=== PATIENT | female | born 1935 | race Caucasian/White ===

== ENCOUNTER 2021-01-01 14:34 | Inpatient (IN) ==
[2021-01-01 15:29] LABS: Basophils % 0.1 % (0.0-0.8); Eosinophils % 0.1 % (0.00-10.9); Hematocrit 37.7 VOL% (35.7-47.0); Hemoglobin 12.1 GM/DL (12.0-16.0); Immature Granulocytes % 0.6 %; Immature Granulocytes Absolute 0.06 #; Lymphocytes # 1.8 10*3/uL (1.4-4.0); Lymphocytes % 17.3 % (21.3-54.2); Mean Corpuscular HGB Conc 32.1 GM/DL (32-36); Mean Corpuscular Volume 99.2 FL (87-102); Mean Platelet Volume 9.4 FL (9.6-12.0); Monocytes % 10.2 % (1.7-12.7); Neutrophils % 71.7 % (38.7-73.9); Platelet Count 357 T/CUMM (130-400); Red Cell Distribution Width 13.2 % (9.3-17.3); White Blood Count 10.6 T/CUMM (4-12)
[2021-01-01 15:33] LABS: Barbiturates Screen,Urine Negative (Negative); Benzodiazepines Screen,Urine Negative (Negative); Cannabinoid Screen,Urine Negative (Negative); Opiate Screen,Urine Positive (Negative); Phencyclidine Screen,Urine Negative (Negative)
[2021-01-01 15:34] LABS: Bacteria,Urine Many /HPF (Few); Bilirubin,Urine Negative (Negative); Blood, Urine Small mg/dL (Negative); Glucose,Urine (UA) Negative (Negative); Ketones,Urine Negative (Negative); Mucus,Urine Occasional /LPF (Occasional); Nitrite,Urine Negative (Negative); Protein,Urine 30 MG/DL; RBC,Urine 7 /HPF (0-4); Urine Appearance CLOUDY (Clear); Urine Color Yellow (Yellow); Urine Specific Gravity 1.016 (1.001-1.035); Urine Urobilinogen < 2.0 EU/DL (0.2-1.0); WBC,Urine 80 /HPF (0-6)
[2021-01-01 15:53] LABS: Alanine Aminotransferase 16 U/L (13-56); Alkaline Phosphatase 51 U/L (45-117); Aspartate Amino Transferase 12 U/L (0-37); Bilirubin,Total < 0.39 MG/DL (0.2-1.0); Blood Urea Nitrogen 46 MG/DL (7-18); Calcium 10.2 MG/DL (8.5-10.1); Carbon Dioxide 22 MMOL/L (21-32); Estimated Glom Filtration Rate 26 ML/MIN; Glucose 106 MG/DL (74-106); Osmolality,Calculated 303.4 MOS/KG (273-304); Potassium 4.8 MMOL/L (3.5-5.1); Sodium 147 MMOL/L (136-145); Total Protein 7.6 G/DL (6.4-8.3)
[2021-01-01] MEDS ORDERED: cefTRIAXone 1,000 MG in SODIUM CHLORIDE 0.9% 100 ML IV STA (16:06)
[2021-01-01] MEDS ORDERED: SODIUM CHLORIDE 0.9% 1,000 ML IV STA (16:06)
[2021-01-01] MEDS ORDERED: DILTIAZEM 50 MG/10 ML VIAL IV STA (16:28)
[2021-01-01] MEDS ORDERED: DILTIAZEM 100 MG VIAL.ADD IV ONE (16:30)
[2021-01-01] MEDS ORDERED: DILTIAZEM 25 MG/5 ML VIAL IV ONE (16:30)
[2021-01-01] MEDS ORDERED: DEXTROSE 50% 25 GM/50 ML VIAL IV PRN (16:38)
[2021-01-01] MEDS ORDERED: GLUCAGON 1 MG VIAL IM PRN (16:38)
[2021-01-01] MEDS ORDERED: ONDANSETRON 4 MG/2 ML VIAL IV PRN (16:38)
[2021-01-01] MEDS ORDERED: ENOXAPARIN 30 MG/0.3 ML SYRINGE SUBCUT SCH (18:00)
[2021-01-01 18:49] LABS: Thyroid Stimulating Hormone 0.009 uIU/ml (0.358-3.74)
[2021-01-01] MEDS: DILTIAZEM INJ 100 MG in SODIUM CHLORIDE 0.9% 100 ML IV SCH (19:47)
[2021-01-01] MEDS: DEXTROSE 5% 1,000 ML IV SCH (21:23)
[2021-01-02] MEDS: DEXTROSE 5% 1,000 ML IV SCH (05:42)
[2021-01-02 06:28] LABS: Calcium 7.9 MG/DL (8.5-10.1); Osmolality,Calculated 293.4 MOS/KG (273-304); Potassium 3.2 MMOL/L (3.5-5.1)
[2021-01-02 06:30] LABS: Basophils % 0.1 % (0.0-0.8); Eosinophils % 0.1 % (0.00-10.9); Hematocrit 29.9 VOL% (35.7-47.0); Immature Granulocytes % 0.5 %; Immature Granulocytes Absolute 0.04 #; Lymphocytes # 1.8 10*3/uL (1.4-4.0); Mean Corpuscular HGB Conc 28.8 GM/DL (32-36); Mean Corpuscular Volume 110.7 FL (87-102); Mean Platelet Volume 9.8 FL (9.6-12.0); Monocytes % 11.7 % (1.7-12.7); Neutrophils % 62.6 % (38.7-73.9); Platelet Count 227 T/CUMM (130-400); Red Cell Distribution Width 13.6 % (9.3-17.3); White Blood Count 7.3 T/CUMM (4-12)
[2021-01-02 06:33] LABS: Hemoglobin 8.6 GM/DL (12.0-16.0)
[2021-01-02] MEDS ORDERED: INSULIN LISPRO 100 UNIT/ML SUBCUT ONE (07:21)
[2021-01-02] MEDS ORDERED: DEXTROSE 50% 25 GM/50 ML VIAL IV PRN (07:24)
[2021-01-02] MEDS ORDERED: SODIUM CHLORIDE 0.9% 1,000 ML IV SCH (07:30)
[2021-01-02] MEDS: PANTOPRAZOLE 40 MG TABLET PO SCH (10:45)
[2021-01-02] MEDS: INSULIN LISPRO 100 UNIT/ML SUBCUT SCH ×4 (11:52→23:08)
[2021-01-02] MEDS ORDERED: ACETAMINOPHEN 325 MG TABLET PO PRN (13:07)
[2021-01-02] MEDS: SODIUM CHLOR 0.9% KCL 40 MEQ 40 MEQ/1,000 ML BAG IV SCH (13:30)
[2021-01-02] MEDS ORDERED: LEVOTHYROXINE 125 MCG TABLET PO SCH (13:30)
[2021-01-02] MEDS ORDERED: METOPROLOL SUCCINATE XL 50 MG TABLET PO ONE (13:38)
[2021-01-02] MEDS: CITALOPRAM 20 MG TABLET PO SCH (14:13)
[2021-01-02] MEDS: MONTELUKAST 10 MG TABLET PO SCH (14:13)
[2021-01-02] MEDS ORDERED: cefTRIAXone 1,000 MG in SYRINGE 1 EACH IV SCH (16:00)
[2021-01-02] MEDS: APIXABAN 2.5 MG TABLET PO SCH ×2 (16:31→22:03)
[2021-01-02] MEDS: DILTIAZEM INJ 100 MG in SODIUM CHLORIDE 0.9% 100 ML IV SCH (17:10)
[2021-01-02] MEDS ORDERED: SIMVASTATIN 20 MG TABLET PO SCH (21:00)
[2021-01-02] MEDS: METOPROLOL TARTRATE 25 MG TABLET PO SCH (22:03)
[2021-01-02] MEDS: ASCORBIC ACID 500 MG TABLET PO SCH (22:03)
[2021-01-03] MEDS: SODIUM CHLOR 0.9% KCL 40 MEQ 40 MEQ/1,000 ML BAG IV SCH ×2 (02:49→15:56)
[2021-01-03] MEDS: INSULIN LISPRO 100 UNIT/ML SUBCUT SCH ×6 (03:38→20:41)
[2021-01-03] MEDS: LEVOTHYROXINE 75 MCG TABLET PO SCH (05:44)
[2021-01-03 06:20] LABS: Basophils % 0.3 % (0.0-0.8); Eosinophils # 0.1 10*3/uL (0.0-0.87); Eosinophils % 1.3 % (0.00-10.9); Hemoglobin 12.6 GM/DL (12.0-16.0); Immature Granulocytes % 0.6 %; Immature Granulocytes Absolute 0.07 #; Lymphocytes # 2.6 10*3/uL (1.4-4.0); Lymphocytes % 23.3 % (21.3-54.2); Mean Corpuscular HGB Conc 32.3 GM/DL (32-36); Mean Corpuscular Volume 97.5 FL (87-102); Mean Platelet Volume 9.8 FL (9.6-12.0); Monocytes % 9.5 % (1.7-12.7); Platelet Count 314 T/CUMM (130-400); Red Cell Distribution Width 12.8 % (9.3-17.3); White Blood Count 11.1 T/CUMM (4-12)
[2021-01-03 06:26] LABS: Calcium 9.4 MG/DL (8.5-10.1); Osmolality,Calculated 280.5 MOS/KG (273-304); Potassium 5.1 MMOL/L (3.5-5.1)
[2021-01-03] MEDS ORDERED: ASPIRIN EC 81 MG TABLET PO SCH (09:00)
[2021-01-03] MEDS: METOPROLOL TARTRATE 25 MG TABLET PO SCH ×2 (09:38→20:41)
[2021-01-03] MEDS: CITALOPRAM 20 MG TABLET PO SCH (09:38)
[2021-01-03] MEDS: MONTELUKAST 10 MG TABLET PO SCH (09:39)
[2021-01-03] MEDS: ASCORBIC ACID 500 MG TABLET PO SCH ×2 (09:39→20:41)
[2021-01-03] MEDS: CALCIUM (CARBONATE) 500 MG TABLET PO SCH (09:39)
[2021-01-03] MEDS: PANTOPRAZOLE 40 MG TABLET PO SCH (09:39)
[2021-01-03] MEDS: APIXABAN 2.5 MG TABLET PO SCH ×2 (09:39→20:41)
[2021-01-03] MEDS: DILTIAZEM INJ 100 MG in SODIUM CHLORIDE 0.9% 100 ML IV SCH ×2 (14:46→16:35)
[2021-01-03 15:21] LABS: Potassium 4.5 MMOL/L (3.5-5.1)
[2021-01-03] MEDS ORDERED: METOPROLOL TARTRATE 25 MG TABLET PO ONE (15:23)
[2021-01-03] MEDS: CEFUROXIME 500 MG TABLET PO SCH (20:40)
[2021-01-03] MEDS: PRAVASTATIN 20 MG TABLET PO SCH (20:41)
[2021-01-04] MEDS: LEVOTHYROXINE 75 MCG TABLET PO SCH (05:56)
[2021-01-04 06:36] LABS: Basophils % 0.2 % (0.0-0.8); Eosinophils # 0.2 10*3/uL (0.0-0.87); Eosinophils % 1.4 % (0.00-10.9); Hematocrit 37.5 VOL% (35.7-47.0); Hemoglobin 12.3 GM/DL (12.0-16.0); Immature Granulocytes % 0.7 %; Immature Granulocytes Absolute 0.09 #; Lymphocytes % 23.7 % (21.3-54.2); Mean Corpuscular HGB Conc 32.8 GM/DL (32-36); Mean Corpuscular Volume 97.4 FL (87-102); Mean Platelet Volume 8.8 FL (9.6-12.0); Monocytes % 9.7 % (1.7-12.7); Neutrophils % 64.3 % (38.7-73.9); Platelet Count 268 T/CUMM (130-400); Red Blood Count 3.85 MC/CUMM (3.8-5.5); Red Cell Distribution Width 12.9 % (9.3-17.3); White Blood Count 12.7 T/CUMM (4-12)
[2021-01-04 07:03] LABS: Calcium 8.5 MG/DL (8.5-10.1); Osmolality,Calculated 276.7 MOS/KG (273-304); Potassium 4.4 MMOL/L (3.5-5.1)
[2021-01-04 07:35] LABS: Calcium 8.1 MG/DL (8.5-10.1); Osmolality,Calculated 280.4 MOS/KG (273-304); Potassium 4.1 MMOL/L (3.5-5.1)
[2021-01-04] MEDS: INSULIN LISPRO 100 UNIT/ML SUBCUT SCH ×4 (08:46→21:07)
[2021-01-04] MEDS: MONTELUKAST 10 MG TABLET PO SCH (09:30)
[2021-01-04] MEDS: DILTIAZEM CD 120 MG CAPSULE PO SCH (09:30)
[2021-01-04] MEDS: METOPROLOL TARTRATE 25 MG TABLET PO SCH ×2 (09:30→21:07)
[2021-01-04] MEDS: CALCIUM (CARBONATE) 500 MG TABLET PO SCH (09:30)
[2021-01-04] MEDS: PANTOPRAZOLE 40 MG TABLET PO SCH (09:30)
[2021-01-04] MEDS: CITALOPRAM 20 MG TABLET PO SCH (09:31)
[2021-01-04] MEDS: ASCORBIC ACID 500 MG TABLET PO SCH ×2 (09:31→21:07)
[2021-01-04] MEDS: APIXABAN 2.5 MG TABLET PO SCH ×2 (09:31→21:07)
[2021-01-04] MEDS: CEFUROXIME 500 MG TABLET PO SCH ×2 (09:31→21:07)
[2021-01-04] MEDS ORDERED: FAMOTIDINE 20 MG/2 ML VIAL IV ONE (17:50)
[2021-01-04] MEDS ORDERED: methylPREDNISolone SOD SUC 125 MG/2 ML VIAL IV ONE (17:50)
[2021-01-04] MEDS: DILTIAZEM INJ 100 MG in SODIUM CHLORIDE 0.9% 100 ML IV SCH (17:52)
[2021-01-04] MEDS ORDERED: FAMOTIDINE INJ 40 MG in SODIUM CHLORIDE 0.9% 100 ML IV ONE (18:00)
[2021-01-04 18:01] LABS: Bacteria,Urine Many /HPF (Few); Bilirubin,Urine Negative (Negative); Blood, Urine Moderate mg/dL (Negative); Glucose,Urine (UA) Negative (Negative); Ketones,Urine 5 mg/dL (Negative); Mucus,Urine Occasional /LPF (Occasional); Nitrite,Urine Positive (Negative); Protein,Urine 30 MG/DL; RBC,Urine 40 /HPF (0-4); Urine Appearance Slightly Hazy (Clear); Urine Color Yellow (Yellow); Urine Specific Gravity 1.013 (1.001-1.035); Urine Urobilinogen < 2.0 EU/DL (0.2-1.0); WBC,Urine 302 /HPF (0-6)
[2021-01-04] MEDS: PRAVASTATIN 20 MG TABLET PO SCH (21:07)
[2021-01-05] MEDS: LEVOTHYROXINE 75 MCG TABLET PO SCH (06:12)
[2021-01-05 07:55] LABS: Basophils % 0.1 % (0.0-0.8); Hematocrit 37.9 VOL% (35.7-47.0); Hemoglobin 12.6 GM/DL (12.0-16.0); Lymphocytes # 1.5 10*3/uL (1.4-4.0); Lymphocytes % 14.6 % (21.3-54.2); Mean Corpuscular HGB Conc 33.2 GM/DL (32-36); Mean Corpuscular Volume 95.2 FL (87-102); Mean Platelet Volume 9.6 FL (9.6-12.0); Monocytes % 1.5 % (1.7-12.7); Neutrophils % 82.8 % (38.7-73.9); Platelet Count 334 T/CUMM (130-400); Red Blood Count 3.98 MC/CUMM (3.8-5.5); Red Cell Distribution Width 12.5 % (9.3-17.3); White Blood Count 10.2 T/CUMM (4-12)
[2021-01-05 08:11] LABS: Osmolality,Calculated 278.8 MOS/KG (273-304); Potassium 3.7 MMOL/L (3.5-5.1)
[2021-01-05 08:14] LABS: Albumin 3.4 G/DL (3.4-5.0); Bilirubin,Total 1.1 MG/DL (0.2-1.0); Calcium 9.3 MG/DL (8.5-10.1); Potassium 3.7 MMOL/L (3.5-5.1)
[2021-01-05] MEDS: INSULIN LISPRO 100 UNIT/ML SUBCUT SCH ×5 (10:05→21:25)
[2021-01-05] MEDS: CALCIUM (CARBONATE) 500 MG TABLET PO SCH (10:06)
[2021-01-05] MEDS: APIXABAN 2.5 MG TABLET PO SCH ×2 (10:06→21:25)
[2021-01-05] MEDS: DILTIAZEM CD 120 MG CAPSULE PO SCH (10:06)
[2021-01-05] MEDS: METOPROLOL TARTRATE 25 MG TABLET PO SCH ×2 (10:07→21:25)
[2021-01-05] MEDS: ASCORBIC ACID 500 MG TABLET PO SCH ×2 (10:07→21:25)
[2021-01-05] MEDS: PANTOPRAZOLE 40 MG TABLET PO SCH (10:07)
[2021-01-05] MEDS: CITALOPRAM 20 MG TABLET PO SCH (10:07)
[2021-01-05] MEDS: MONTELUKAST 10 MG TABLET PO SCH (10:07)
[2021-01-05] MEDS: CEFUROXIME 500 MG TABLET PO SCH ×2 (10:07→21:25)
[2021-01-05] MEDS ORDERED: DILTIAZEM CD 120 MG CAPSULE PO SCH (11:28)
[2021-01-05] MEDS ORDERED: DILTIAZEM CD 120 MG CAPSULE PO ONE (11:28)
[2021-01-05] MEDS: DILTIAZEM INJ 100 MG in SODIUM CHLORIDE 0.9% 100 ML IV SCH (16:23)
[2021-01-05] MEDS: PRAVASTATIN 20 MG TABLET PO SCH (21:25)
[2021-01-06] MEDS: LEVOTHYROXINE 75 MCG TABLET PO SCH (05:59)
[2021-01-06 06:47] LABS: Osmolality,Calculated 280.8 MOS/KG (273-304); Potassium 3.6 MMOL/L (3.5-5.1)
[2021-01-06] MEDS: INSULIN LISPRO 100 UNIT/ML SUBCUT SCH ×4 (08:08→21:54)
[2021-01-06] MEDS ORDERED: POTASSIUM CHLORIDE 20 MEQ TABLET PO ONE (08:33)
[2021-01-06] MEDS: CALCIUM (CARBONATE) 500 MG TABLET PO SCH (08:51)
[2021-01-06] MEDS: MONTELUKAST 10 MG TABLET PO SCH (08:51)
[2021-01-06] MEDS: CITALOPRAM 20 MG TABLET PO SCH (08:51)
[2021-01-06] MEDS: METOPROLOL TARTRATE 25 MG TABLET PO SCH ×2 (08:52→21:52)
[2021-01-06] MEDS: DILTIAZEM CD 120 MG CAPSULE PO SCH (08:52)
[2021-01-06] MEDS: PANTOPRAZOLE 40 MG TABLET PO SCH (08:52)
[2021-01-06] MEDS: CEFUROXIME 500 MG TABLET PO SCH ×2 (08:52→21:52)
[2021-01-06] MEDS: APIXABAN 2.5 MG TABLET PO SCH ×2 (08:52→21:52)
[2021-01-06] MEDS: ASCORBIC ACID 500 MG TABLET PO SCH ×2 (10:08→21:52)
[2021-01-06] MEDS: CYANOCOBALAMIN 1000 MCG/1 ML VIAL SUBCUT SCH (12:30)
[2021-01-06] MEDS: DILTIAZEM INJ 100 MG in SODIUM CHLORIDE 0.9% 100 ML IV SCH (16:02)
[2021-01-06] MEDS: PRAVASTATIN 20 MG TABLET PO SCH (21:52)
[2021-01-07 05:45] LABS: Basophils % 0.1 % (0.0-0.8); Eosinophils # 0.1 10*3/uL (0.0-0.87); Eosinophils % 0.6 % (0.00-10.9); Hematocrit 36.5 VOL% (35.7-47.0); Hemoglobin 12.1 GM/DL (12.0-16.0); Immature Granulocytes Absolute 0.14 #; Lymphocytes # 2.4 10*3/uL (1.4-4.0); Lymphocytes % 17.6 % (21.3-54.2); Mean Corpuscular HGB Conc 33.2 GM/DL (32-36); Mean Corpuscular Volume 95.3 FL (87-102); Mean Platelet Volume 9.4 FL (9.6-12.0); Monocytes % 9.5 % (1.7-12.7); Neutrophils % 71.2 % (38.7-73.9); Platelet Count 362 T/CUMM (130-400); Red Blood Count 3.83 MC/CUMM (3.8-5.5); White Blood Count 13.6 T/CUMM (4-12)
[2021-01-07 06:08] LABS: Osmolality,Calculated 289.3 MOS/KG (273-304)
[2021-01-07] MEDS: LEVOTHYROXINE 75 MCG TABLET PO SCH (06:15)
[2021-01-07] MEDS: INSULIN LISPRO 100 UNIT/ML SUBCUT SCH ×4 (08:24→21:24)
[2021-01-07] MEDS: CITALOPRAM 20 MG TABLET PO SCH (08:25)
[2021-01-07] MEDS: APIXABAN 2.5 MG TABLET PO SCH ×2 (08:25→21:24)
[2021-01-07] MEDS: MONTELUKAST 10 MG TABLET PO SCH (08:25)
[2021-01-07] MEDS: PANTOPRAZOLE 40 MG TABLET PO SCH (08:25)
[2021-01-07] MEDS: ASCORBIC ACID 500 MG TABLET PO SCH ×2 (08:26→21:24)
[2021-01-07] MEDS: CEFUROXIME 500 MG TABLET PO SCH (08:26)
[2021-01-07] MEDS: DILTIAZEM CD 120 MG CAPSULE PO SCH (08:26)
[2021-01-07] MEDS: METOPROLOL TARTRATE 25 MG TABLET PO SCH ×2 (08:26→21:24)
[2021-01-07] MEDS: CYANOCOBALAMIN 1000 MCG/1 ML VIAL SUBCUT SCH (08:27)
[2021-01-07] MEDS: CALCIUM (CARBONATE) 500 MG TABLET PO SCH (08:27)
[2021-01-07] MEDS ORDERED: DILTIAZEM CD 120 MG CAPSULE PO SCH (09:58)
[2021-01-07] MEDS: METOPROLOL TARTRATE 5 MG/5 ML VIAL IV SCH ×3 (10:05→10:19)
[2021-01-07] MEDS ORDERED: AMIODARONE INJ 150 MG in DEXTROSE 5% 100 ML IV ONE (11:00)
[2021-01-07] MEDS ORDERED: AMIODARONE INJ 450 MG in DEXTROSE 5% 241 ML IV SCH ×2 (11:00→17:00)
[2021-01-07] MEDS: PRAVASTATIN 20 MG TABLET PO SCH (21:24)
[2021-01-08] MEDS ORDERED: hydrALAZINE 20 MG/1 ML VIAL IV PRN (01:25)
[2021-01-08 06:26] LABS: Basophils % 0.2 % (0.0-0.8); Eosinophils # 0.1 10*3/uL (0.0-0.87); Eosinophils % 0.3 % (0.00-10.9); Hemoglobin 12.8 GM/DL (12.0-16.0); Immature Granulocytes Absolute 0.16 #; Lymphocytes # 2.7 10*3/uL (1.4-4.0); Lymphocytes % 17.6 % (21.3-54.2); Mean Corpuscular HGB Conc 33.7 GM/DL (32-36); Mean Corpuscular Volume 95.7 FL (87-102); Mean Platelet Volume 9.2 FL (9.6-12.0); Monocytes % 9.9 % (1.7-12.7); Platelet Count 353 T/CUMM (130-400); Red Blood Count 3.97 MC/CUMM (3.8-5.5); Red Cell Distribution Width 12.9 % (9.3-17.3); White Blood Count 15.5 T/CUMM (4-12)
[2021-01-08] MEDS: LEVOTHYROXINE 75 MCG TABLET PO SCH (06:31)
[2021-01-08 07:19] LABS: Calcium 8.9 MG/DL (8.5-10.1); Osmolality,Calculated 279.7 MOS/KG (273-304); Potassium 4.3 MMOL/L (3.5-5.1)
[2021-01-08] MEDS: PANTOPRAZOLE 40 MG TABLET PO SCH (08:52)
[2021-01-08] MEDS: MONTELUKAST 10 MG TABLET PO SCH (08:52)
[2021-01-08] MEDS: DILTIAZEM CD 120 MG CAPSULE PO SCH (08:53)
[2021-01-08] MEDS: ASCORBIC ACID 500 MG TABLET PO SCH ×2 (08:57→21:15)
[2021-01-08] MEDS: CALCIUM (CARBONATE) 500 MG TABLET PO SCH (08:58)
[2021-01-08] MEDS: AMIODARONE 200 MG TABLET PO SCH ×2 (09:00→21:15)
[2021-01-08] MEDS: CITALOPRAM 20 MG TABLET PO SCH (09:01)
[2021-01-08] MEDS: APIXABAN 2.5 MG TABLET PO SCH ×2 (09:03→21:15)
[2021-01-08] MEDS: CYANOCOBALAMIN 1000 MCG/1 ML VIAL SUBCUT SCH (09:06)
[2021-01-08] MEDS: METOPROLOL TARTRATE 25 MG TABLET PO SCH ×2 (09:14→21:15)
[2021-01-08] MEDS: INSULIN LISPRO 100 UNIT/ML SUBCUT SCH ×4 (09:30→22:38)
[2021-01-08] MEDS: PRAVASTATIN 20 MG TABLET PO SCH (21:15)
[2021-01-09 05:50] LABS: Basophils % 0.2 % (0.0-0.8); Eosinophils # 0.2 10*3/uL (0.0-0.87); Eosinophils % 1.2 % (0.00-10.9); Hematocrit 36.9 VOL% (35.7-47.0); Hemoglobin 12.3 GM/DL (12.0-16.0); Lymphocytes # 2.8 10*3/uL (1.4-4.0); Lymphocytes % 18.1 % (21.3-54.2); Mean Corpuscular HGB Conc 33.3 GM/DL (32-36); Mean Corpuscular Volume 94.4 FL (87-102); Mean Platelet Volume 9.2 FL (9.6-12.0); Monocytes % 10.3 % (1.7-12.7); Neutrophils % 68.2 % (38.7-73.9); Platelet Count 378 T/CUMM (130-400); Red Blood Count 3.91 MC/CUMM (3.8-5.5); Red Cell Distribution Width 12.8 % (9.3-17.3); White Blood Count 15.3 T/CUMM (4-12)
[2021-01-09 06:07] LABS: Calcium 8.8 MG/DL (8.5-10.1); Osmolality,Calculated 280.8 MOS/KG (273-304); Potassium 3.7 MMOL/L (3.5-5.1)
[2021-01-09] MEDS: LEVOTHYROXINE 75 MCG TABLET PO SCH (06:18)
[2021-01-09] MEDS: INSULIN LISPRO 100 UNIT/ML SUBCUT SCH ×2 (08:17→13:24)
[2021-01-09] MEDS: CYANOCOBALAMIN 1000 MCG/1 ML VIAL SUBCUT SCH (08:55)
[2021-01-09] MEDS: CALCIUM (CARBONATE) 500 MG TABLET PO SCH (08:56)
[2021-01-09] MEDS: METOPROLOL TARTRATE 25 MG TABLET PO SCH (08:56)
[2021-01-09] MEDS: MONTELUKAST 10 MG TABLET PO SCH (08:56)
[2021-01-09] MEDS: APIXABAN 2.5 MG TABLET PO SCH (08:56)
[2021-01-09] MEDS: CITALOPRAM 20 MG TABLET PO SCH (08:56)
[2021-01-09] MEDS: ASCORBIC ACID 500 MG TABLET PO SCH (08:57)
[2021-01-09] MEDS: DILTIAZEM CD 120 MG CAPSULE PO SCH (08:57)
[2021-01-09] MEDS: PANTOPRAZOLE 40 MG TABLET PO SCH (08:57)
[2021-01-09] MEDS: AMIODARONE 200 MG TABLET PO SCH (08:59)
[2021-01-09 12:35] VITALS: BP 142/60
== END 2021-01-09 13:20 | DRG 690 ==
LOC: EDUNIT# → EDBD → N.EDINP 14:34 → N.ED 14:34 → N.EDINP 19:36 → N.TELES 19:59 → SUATTDRO 01-02 14:19
PROVIDERS: ADMIT Internal Medicine; ATTEND Internal Medicine